=== PATIENT | female | born 1990 | race Hispanic/Latino ===

== ENCOUNTER 2024-12-31 11:20 | Emergency (ER) | payer SELFPAY ==
[~2024-12-31] VITALS: Ht 157.5 cm; Wt 74.8 kg
[2024-12-31] MEDS ORDERED: ibuPROFEN 600 MG TABLET PO STA (11:51)
--- NOTE | 2024-12-31 11:58 | ERN ---
ED Note History of Present Illness Stated Complaint: ABD PAIN Chief Complaint: Abdominal Pain Time Seen by MD: 11:21 Time Seen by Midlevel: 11:21 Dictation: [age] old female presents to the ED for lower abdominal pain onto this morning. Patient reports she was on menstrual cycle he was having abdominal cramping and vaginal bleeding but then noticed clots passing. Denies nausea, vomiting, diarrhea, chest pain, headache, chills. Reports no pain at this time right now. A2. Allergies: Coded Allergies: No Known Drug Allergies (Unverified Allergy, Unknown, 12/31/24) Past Medical History Past Medical History: No Pertinent History Surgical History: None RN Note Reviewed/Agreed w/PFSH: Yes Review of System Dictation CONSTITUTIONAL: Negative except for HPI HEAD/FACE: Negative except for HPI EENT: Negative except for HPI RESPIRATORY: Negative except for HPI GASTROINTESTINAL/ABDOMINAL: Negative except for HPI GENITOURINARY: Negative except for HPI MUSCULOSKELETAL: Negative except for HPI INTEGUMENTARY: Negative except for HPI NEUROLOGICAL/PSYCH: Negative except for HPI HEMATOLOGIC/LYMPHATIC: Negative except for HPI All Systems Negative, Except as noted above. 13 point review of systems assessed and all negative except for above. Review of Systems: was completed Initial Vital Sign VS Vital Signs Date Time Temp Pulse Resp B/P (MAP) Pulse Ox O2 Delivery O2 Flow Rate FiO2 12/31/24 11:30 98.6 98 16 144/89 98 Room Air Physical Exam Dictation PHYSICAL EXAM: GENERAL: alert,, awake oriented x 3 HEENT: EOMI, Sclera non icteric, moist mucosa NECK: Supple, no JVD, trachea midline LUNGS: Clear breath sounds bilaterally. No wheezes HEART: Regular rate and rhythm. Normal S1 and S2, without murmurs ABD: Abdomen soft, nontender. Bowel sounds present EXT: No clubbing or cyanosis, NEURO: Alert and oriented to person, follows commands Results (Laboratory/Radiology) Laboratory/Radiology Laboratory Tests Test 12/31/24 12:14 12/31/24 12:24 White Blood Count 12.9 K/uL (4.8-10.8) H Red Blood Count 2.64 MIL/uL (4.00-5.50) L Hemoglobin 7.8 g/dL (12.0-16.0) L Hematocrit 23.3 % (36-48) L Mean Corpuscular Volume 88.3 fL (79-99) Mean Corpuscular Hemoglobin 29.5 pg (27.0-33.0) Mean Corpuscular Hemoglobin Concent 33.5 g/dL (32.0-36.0) Red Cell Distribution Width 14.8 % (11.0-15.5) Platelet Count 259 K/uL (130-400) Mean Platelet Volume 10.3 fL (7.5-10.5) Immature Granulocyte % (Auto) 0.5 % (0-1) Neutrophils (%) (Auto) 84.4 % (40.0-77.0) H Lymphocytes (%) (Auto) 11.8 % (21.0-51.0) L Monocytes (%) (Auto) 3.1 % (3.0-13.0) Eosinophils (%) (Auto) 0.0 % (0.0-8.0) Basophils (%) (Auto) 0.2 % (0.0-5.0) Neutrophils # (Auto) 10.9 K/uL (1.8-7.7) H Lymphocytes # (Auto) 1.5 K/uL (1.0-4.8) Monocytes # (Auto) 0.4 K/uL (0.1-1.0) Eosinophils # (Auto) 0.00 K/uL (0.00-0.70) Basophils # (Auto) 0.03 K/uL (0.00-0.20) Absolute Immature Granulocyte (auto 0.07 K/uL (0-1) Nucleated Red Blood Cells 0.0 % (0.0-0.19) Sodium Level 136 mmol/L (136-145) Potassium Level 4.6 mmol/L (3.5-5.1) Chloride Level 103 mmol/L (101-111) Carbon Dioxide Level 23 mmol/L (21-32) Blood Urea Nitrogen 11 mg/dL (7-18) Creatinine 0.8 mg/dL (0.5-1.0) Glomerular Filtration Rate Calc 99 mL/min (>90) Random Glucose 116 mg/dL (70-105) H Total Calcium 8.8 mg/dL (8.5-10.1) Lipase 29 U/L (16-77) Human Chorionic Gonadotropin, Quant 76055 mIU/mL (0-5) H Urine Color LIGHT-ORANGE (YELLOW) Urine Appearance CLOUDY (CLEAR) H Urine pH 6.0 (5.0-8.0) Urine Specific Holt 1.032 (1.001-1.031) Urine Protein 70 mg/dL (NEGATIVE) H Urine Glucose (UA) NEGATIVE mg/dL (NEGATIVE) Urine Ketones 10 mg/dL (NEGATIVE) H Urine Occult Blood LARGE (NEGATIVE) H Urine Nitrate NEGATIVE (NEGATIVE) Urine Bilirubin NEGATIVE mg/dL (NEGATIVE) Urine Urobilinogen 0.2 mg/dL (0.2-1.0) Urine Leukocyte Esterase 500 King/uL (NEGATIVE) H Urine RBC TNTC /HPF (0-1) H Urine WBC 51-100 /HPF (0-1) H Urine Squamous Epithelial Cells MOD /HPF (0-2) Urine Bacteria RARE /HPF (None Seen) Urine Yeast FEW /HPF (None Seen) Urine HCG, Qualitative POSITIVE (NEGATIVE) H Labs Reviewed?: Yes Ultrasound Comment: REASON: VAGINAL BLEEDING ORDERING PHYSICIAN: HAYDEN GREER PROCEDURE: OB <14 - US OB <14 WEEKS Exam Type: US OB <14 WEEKS Clinical Information: VAGINAL BLEEDING Comparison: None Findings: Enlarged anteverted uterus measuring 19.3 x 2.2 cm. Endometrial cavity is distended with mixed echogenicity material. It measures 2.3 cm and seems to contain retained product of conception. Left ovary shows a simple cyst, exophytic and the right ovary is obscured. IMPRESSION: Retained also conception ED Course ED Course Orders Procedure Category Date Status Time Urinalysis LAB 12/31/24 Complete W/Microscopic 11:32 ,Urine Test LAB 12/31/24 Complete 11:32 Ibuprofen 600 Mg PHA 12/31/24 Complete Tablet (Motrin) 11:51 Cbc With Differential LAB 12/31/24 Complete 11:58 Basic Metabolic Panel LAB 12/31/24 Complete 11:58 Lipase LAB 12/31/24 Complete 11:58 Culture Urine ANA 12/31/24 In Process 12:36 Abo/Rh BBK 12/31/24 In Process 12:52 Hcg,Quantitative LAB 12/31/24 Complete 12:52 Us Ob <14 Weeks US 12/31/24 Resulted 12:52 0.9%Nacl 1000ml (Ns PHA 12/31/24 Complete 1000ml) 13:00 Ceftriaxone 1g Vial PHA 12/31/24 Complete (Rocephine 1g Inj) 12:53 Current Medications Medications (Trade) Dose Ordered Sig/Hipolito Route PRN Reason Start Time Stop Time Status Last Admin Dose Admin Ceftriaxone Sodium (ROCEphine 1G INJ) 1 gm ONCE STAT IVPB 12/31/24 12:53 12/31/24 12:56 DC Ibuprofen (moTRIN) 600 mg ONCE STAT PO 12/31/24 11:51 12/31/24 12:53 DC Sodium Chloride 1,000 ml @ 0 mls/hr ONCE ONCE IV 12/31/24 13:00 12/31/24 13:01 DC Vital Signs Date Time Temp Pulse Resp B/P (MAP) Pulse Ox O2 Delivery O2 Flow Rate FiO2 12/31/24 11:30 98.6 98 16 144/89 98 Room Air Medical Decision Making MDM MDM: Differential diagnosis: UTI, menstrual cramping, threatened , incomplete . There are no social concerns with this patient. Prescription drug management Prescriptions will include: Medical management and examination interpretation discussions were had by me with other qualified healthcare professionals as indicated for the patient's care. [age] old female presents to the ED for lower abdominal pain onto this morning. Patient reports she was on menstrual cycle he was having abdominal cramping and vaginal bleeding but then noticed clots passing. Denies nausea, vomiting, diarrhea, chest pain, headache, chills. Reports no pain at this time right now. A2. Urine hCG was positive so ultrasound was ordered and beta hCG. Patient reports LMP before bleeding that started was 11/30/24. Patient is now A2. Ultrasound shows endometrial cavity is distended with a mixed echogenicity material. Seem to continuing retained products of conception. CBC shows mild leukocytosis 12.90 consistent with UTI seen on march. 500+ leukocyte esterase with 51-100 urine WBC. Patient was given dose of Rocephin here in the ER. Discussed findings ultrasound with the patient and recommended she follow up with OBGYN. Patient was same with the addition this time. Afebrile, nonseptic appearing. No pain. Patient will be discharged home in stable condition. Patient verbalized understanding, agreed with plan, and all questions were answered at this time. DX & DISP Disposition: Discharge Departure Impression: Primary Impression: Incomplete Additional Impression: UTI (urinary tract infection) Condition: Stable Scripts Cephalexin Monohydrate (Keflex) 500 Mg Cap 500 MG PO QID for 7 Days, #28 CAP Prov: HAYDEN GREER 12/31/24 Referrals: SELF,REFERRAL (PCP) I have reviewed the case, and I agree with, Diagnosis and Plan HAYDEN GREER Dec 31, 2024 11:58
[2024-12-31 12:24] LABS: BASOPHILS # (AUTO) 0.03 K/uL (0.00-0.20); BASOPHILS % (AUTO) 0.2 % (0.0-5.0); HEMATOCRIT 23.3 % (36-48); IMMATURE GRANULOCYTE ABSOLUTE 0.07 K/uL (0-1); LYMPHOCYTES # (AUTO) 1.5 K/uL (1.0-4.8); LYMPHOCYTES % (AUTO) 11.8 % (21.0-51.0); MEAN CORPUSCULAR HEMOGLOBIN 29.5 pg (27.0-33.0); MEAN CORPUSCULAR HGB CONC 33.5 g/dL (32.0-36.0); MEAN CORPUSCULAR VOLUME 88.3 fL (79-99); MONOCYTES # (AUTO) 0.4 K/uL (0.1-1.0); MONOCYTES % (AUTO) 3.1 % (3.0-13.0); NEUTROPHILS # (AUTO) 10.9 K/uL (1.8-7.7); NEUTROPHILS % (AUTO) 84.4 % (40.0-77.0); PLATELET COUNT (AUTO) 259 K/uL (130-400); RED BLOOD CELL COUNT(AUTO) 2.64 MIL/uL (4.00-5.50); RED CELL DISTRIBUTION WIDTH 14.8 % (11.0-15.5); WHITE BLOOD COUNT (AUTO) 12.9 K/uL (4.8-10.8)
[2024-12-31 12:29] LABS: HCG,QUALITATIVE URINE POSITIVE (NEGATIVE)
[2024-12-31 12:33] LABS: CREATININE 0.8 mg/dL (0.5-1.0); POTASSIUM 4.6 mmol/L (3.5-5.1)
[2024-12-31 12:34] LABS: APPEARANCE,URINE CLOUDY (CLEAR); BACTERIA,URINE RARE /HPF (None Seen); BILIRUBIN,URINE NEGATIVE (NEGATIVE); COLOR,URINE LIGHT-ORANGE (YELLOW); GLUCOSE, URINE (UA) NEGATIVE (NEGATIVE); KETONES,URINE 10 mg/dL (NEGATIVE); LEUKOCYTE ESTERASE ,URINE 500 Leu/uL (NEGATIVE); MUCUS,URINE RARE LPF (None Seen); NITRATE,URINE NEGATIVE (NEGATIVE); OCCULT BLOOD,URINE LARGE (NEGATIVE); PROTEIN,URINE 70 mg/dL (NEGATIVE); RBC,URINE TNTC /HPF (0-1); SQUAMOUS EPITHELIAL CELL,UR MOD /HPF (0-2); UROBILINOGEN,URINE 0.2 mg/dL (0.2-1.0); WBC,URINE 51-100 /HPF (0-1); YEAST,URINE BUDDING FEW /HPF (None Seen)
[2024-12-31] MEDS ORDERED: cefTRIAXone 1G VIAL IVPB STA (12:53)
[2024-12-31] MEDS ORDERED: 0.9%NACL 1000ML 1,000 ML IV ONE (13:00)
--- NOTE | 2024-12-31 14:29 | HMCIMG ---
Exam Type: US OB <14 WEEKS Clinical Information: VAGINAL BLEEDING Comparison: None Findings: Enlarged anteverted uterus measuring 19.3 x 2.2 cm. Endometrial cavity is distended with mixed echogenicity material. It measures 2.3 cm and seems to contain retained product of conception. Left ovary shows a simple cyst, exophytic and the right ovary is obscured. IMPRESSION: Retained also conception
[2024-12-31 14:47] VITALS: BP 126/84; PULSE 74; RESP 18; TEMP 98.3; O2SAT 97
[2024-12-31] MEDS ORDERED: CEPH500B PO (14:47)
[2024-12-31] MEDS: cefTRIAXone 1G VIAL IM ONE (14:49)
== END 2024-12-31 15:23 | disposition home or self-care (01) ==
LOC: EDH 11:20
DX: O03.38 Urinary tract infection following incomplete spontaneous abortion (principal); N39.0 Urinary tract infection, site not specified; R10.2 Pelvic and perineal pain
CPT/HCPCS: 99285; 76801; 80048; 84702; 83690; 85025; 86900; 86901; 87086; 81001; 81025; 36415; 96372; J0696